=== PATIENT | female | born 1965 | race Two or more races ===

== ENCOUNTER 2018-11-16 05:17 | Day surgery (SDC) | payer MEDICARE, MEDICAID ==
[2018-11-13 10:28] LABS: BASOPHILS # (AUTO) 0.1 X10'3 (0-0.2); BASOPHILS % (AUTO) 0.8 % (0-1); EOSINOPHILS # (AUTO) 0.2 X10'3 (0-0.9); EOSINOPHILS % (AUTO) 2.6 % (0-6); HEMATOCRIT 41.7 % (35.0-45.0); HEMOGLOBIN 13.5 g/dl (12.0-16.0); LYMPHOCYTES # (AUTO) 1.8 X10'3 (1.1-4.8); MEAN CORPUSCULAR HEMOGLOBIN 29.1 PG (27.0-31.0); MEAN CORPUSCULAR HGB CONC 32.5 g/dL (33.0-36.5); MEAN CORPUSCULAR VOLUME 89.6 FL (78-98); MEAN PLATELET VOLUME 9.4 FL (7.4-10.4); MONOCYTES # (AUTO) 0.6 X10'3 (0-0.9); MONOCYTES % (AUTO) 8.2 % (2-12); NEUTROPHILS % (AUTO) 65.4 % (42-75); PLATELET COUNT 253 X10'3 (140-440); RED BLOOD COUNT 4.65 X10'6 (4.20-5.60); RED CELL DISTRIBUTION WIDTH 18.6 % (11.5-14.5); WHITE BLOOD COUNT 7.7 X10'3 (4.5-11.0)
[2018-11-13 10:36] LABS: ALBUMIN 3.8 G/DL (3.4-5.0); ANION GAP 5 (8-16); BLOOD UREA NITROGEN 9 MG/DL (7-18); BUN/CREATININE RATIO 9.5 (6.6-38.0); CALCIUM 9.6 MG/DL (8.5-10.1); CHLORIDE 99 MMOL/L (99-107); CREATININE 0.95 MG/DL (0.40-0.90); GLUCOSE 256 MG/DL (70-104); POTASSIUM 4.9 MMOL/L (3.5-5.1); SODIUM 135 MMOL/L (135-145); TOTAL CARBON DIOXIDE 31.3 MMOL/L (24-32); eGFR 62 ML/MIN
[2018-11-13 10:50] LABS: PARTIAL THROMBOPLASTIN TIME 28 SECONDS (22-32)
[~2018-11-16] VITALS: Ht 162.6 cm; Wt 134.2 kg
[2018-11-16] VITALS (13 sets, daily range): BP systolic 101–126; BP diastolic 54–71
[~2018-11-16 05:17] MED LIST: ASPI81TA30 PO; ATOR20TA66 PO; CHOL2000 PO; CINN500C2; DOCU-28 PO; DULO60CA45 PO; FERR325T28 PO; FLUT100D2 INH; FLUT16SP26 BOTHNARES; GLIP10TA11 PO; GLUC15006; HYDR4TAB45 PO; IBUP-1984 PO; INSU100V36 SQ; LANTUS SQ; LORA10TA7 PO; LORA1TAB PO; LOSA50TA3 PO; MAGNESIUM-VIT1 EACH PO; MELO-102 PO; METF1000 PO; METO5TAB98 PO; MILK175C5; OMEP20TA5 PO; OXYM15MI22; PARO20TA6 PO; POLY17PO26 PO; SIME125C88 CORPAK; SUMA100T16 PO; XOPENEX INH
[2018-11-16] MEDS ORDERED: LORazepam 0.5 MG tablet PO PRN (05:50)
[2018-11-16] MEDS ORDERED: normal saline 1000ml 1,000 ML IV SCH (05:50)
[2018-11-16] MEDS ORDERED: diphenhydrAMINE 25mg capsule PO PRN (05:50)
[2018-11-16] MEDS ORDERED: iohexol 350MG/ML 100ml bottle IV ONE (05:59)
[2018-11-16] MEDS ORDERED: LIDOcaine 1% (10mg/ml)w/preservative injection 20ml MDV ONE (05:59)
[2018-11-16] MEDS ORDERED: iohexol 350 MG/ML 50ML vial IV ONE (05:59)
[2018-11-16] MEDS ORDERED: midazolam 2 mg/2 ml injection ONE (05:59)
[2018-11-16] MEDS ORDERED: fentaNYL/PF 50MCG/1 ML 2ML syringe ONE (05:59)
[2018-11-16] MEDS ORDERED: MONT10TA21 PO (06:25)
[2018-11-16] MEDS ORDERED: IBUP-1984 PO (06:25)
[2018-11-16] MEDS ORDERED: TRAZ-218 PO (06:25)
[2018-11-16] MEDS ORDERED: BENZ-16 PO (06:25)
[2018-11-16] MEDS ORDERED: BUPR200T34 PO (06:25)
[2018-11-16] MEDS ORDERED: FURO-150 PO (06:25)
[2018-11-16] MEDS ORDERED: PREG150C PO (06:25)
[2018-11-16] MEDS ORDERED: MAGN400T6 PO (06:25)
[2018-11-16] MEDS ORDERED: DULO-31 PO (06:25)
[2018-11-16] MEDS ORDERED: PROP10TA10 PO (06:25)
[2018-11-16] MEDS ORDERED: LIRA0.6P2 SUBCUT (06:25)
[2018-11-16] MEDS ORDERED: ATOR20TA PO (06:25)
[2018-11-16] MEDS ORDERED: ALBU18HF2 IH (06:25)
[2018-11-16] MEDS ORDERED: SIME125T62 PO (06:25)
[2018-11-16] MEDS ORDERED: [UNRECOGNIZED DRUG - CODE] PO (06:25)
[2018-11-16] MEDS ORDERED: GLUC1KIT IM (06:25)
[2018-11-16] MEDS ORDERED: proCHLORperazine 10 MG/2 ml inj IV PRN (07:25)
[2018-11-16] MEDS ORDERED: OXAZEpam 15mg capsule PO PRN (07:25)
[2018-11-16] MEDS ORDERED: ondansetron/PF 4mg/2ml inj IV PRN (07:25)
== END 2018-11-16 10:40 | disposition home or self-care (01) ==
LOC: SSTAY O 05:17
PROVIDERS: ATTEND Internal Medicine Interventional Cardiology
DX: R07.9 Chest pain, unspecified (principal); G47.33 Obstructive sleep apnea (adult) (pediatric); I10 Essential (primary) hypertension; F41.8 Other specified anxiety disorders; E78.5 Hyperlipidemia, unspecified; E11.9 Type 2 diabetes mellitus without complications; Z79.4 Long term (current) use of insulin; Z79.899 Other long term (current) drug therapy; G89.29 Other chronic pain; K21.9 Gastro-esophageal reflux disease without esophagitis; E66.01 Morbid (severe) obesity due to excess calories; Z88.6 Allergy status to analgesic agent; Z88.0 Allergy status to penicillin; Z88.8 Allergy status to other drugs, medicaments and biological substances
CPT/HCPCS: 36415; 80048; 82948; 85025; 85610; 85730; 93005; 93458; 99152; A6257; J1644; J2001; J2250; J3010; J7030; Q0163; Q9967; 93459; A4620; C1760; C1769